=== PATIENT | female | born 1975 | race African-American/Black ===

== ENCOUNTER 2018-01-26 18:11 | Emergency (ER) | payer BC, OTHER ==
[~2018-01-26] VITALS: Ht 162.6 cm; Wt 99.8 kg
[2018-01-26] MEDS ORDERED: NORFLEX100 MG PO (20:05)
[2018-01-26] MEDS ORDERED: NAPROSYN500 MG PO (20:05)
[2018-01-26 20:25] VITALS: BP 136/97
== END 2018-01-26 20:28 | disposition home or self-care (01) ==
LOC: ER 18:11
DX: S16.1XXA Strain of muscle, fascia and tendon at neck level, initial encounter (principal); V89.2XXA Person injured in unspecified motor-vehicle accident, traffic, initial encounter; Y92.89 Other specified places as the place of occurrence of the external cause; Y93.89 Activity, other specified; Y99.8 Other external cause status